=== PATIENT | male | born 1980 | race Caucasian/White ===

== ENCOUNTER → 2020-04-09 12:02 | Outpatient (CLI) | payer OTHER, SELFPAY ==
--- NOTE | ~2020-04-09 | XR_ITS ---
EXAMINATION: XR lumbar spine 2-3V DATE: 04/09/2020 12:31 INDICATION: Low back pain TECHNIQUE: Anteroposterior and lateral views of the lumbar spine, and cone-down lateral view of the l umbosacral junction were obtained. COMPARISON: None. FINDINGS: The vertebral body heights and alignment are normal. There is mild loss of intervertebral d isc space height at L2-3 and L5-S1. Small degenerative osteophytes project from the anterior endplate s of multiple vertebral bodies. There is mild facet osteoarthritis of the lower lumbar spine. The bow el gas pattern is normal. IMPRESSION: 1. Mild lumbar spondylosis. Reviewed, dictated and finalized at location A. IMPRESSION: 1. Mild lumbar spondylosis.
--- NOTE | ~2020-04-09 | XR_ITS ---
EXAMINATION: XR chest 2V DATE: 04/09/2020 12:31 INDICATION: Tobacco use TECHNIQUE: AP and lateral views of the chest are obtained. COMPARISON: 12/10/2018 FINDINGS: The lungs are free of acute opacities. There is no pleural effusion or pneumothorax. The ca rdiomediastinal silhouette is normal. There is mild thoracic spondylosis. IMPRESSION: 1. No acute cardiopulmonary abnormality. Reviewed, dictated and finalized at location A.
== END ==
PROVIDERS: PCP Emergency Medicine; Visit Provider Emergency Medicine
DX: M54.5 Low back pain (principal); M47.816 Spondylosis without myelopathy or radiculopathy, lumbar region; Z72.0 Tobacco use
CPT/HCPCS: 71046; 72100

== ENCOUNTER 2022-05-10 13:00 | Emergency (ER) | payer OTHER, SELFPAY ==
--- NOTE | ~2022-05-10 | US_ITS ---
EXAMINATION: US venous doppler LE RT DATE: 05/10/2022 15:43 INDICATION: right leg pain, swelling . TECHNIQUE: Grayscale images without and with compression and Doppler images of the right lower extrem ity veins were obtained. COMPARISON: None FINDINGS: The right common femoral vein, profunda (deep) femoral vein, femoral vein, popliteal vein, peroneal v ein, and posterior tibial veins are patent. IMPRESSION: 1. Patent right lower extremity veins. No evidence of deep venous thrombosis. Reviewed, dictated and finalized at location K. [employer]
[2022-05-10 13:43] VITALS: BP 168/75; PULSE 110; RESP 14; TEMP 37.1; O2SAT 99
[2022-05-10 14:26] LABS: Basophils Absolute Auto 0.1 K/mm3 (0.0-0.1); Basophils Percent Auto 1.2 % (0.2-1.2); Eosinophils Absolute Auto 0.2 K/mm3 (0-0.3); Eosinophils Percent Auto 2.3 % (0-4.4); Hematocrit 40.7 % (42.0-52.0); Hemoglobin 13.7 g/dL (14.0-18.0); Immature Granulocyte Absolute 0.02 K/mm3 (0.00-0.031); Immature Granulocyte Percent A 0.3 % (0-0.5); Lymphocytes Absolute Auto 1.88 K/mm3 (0.9-3.2); Lymphocytes Percent Auto 28.8 % (18.3-44.2); Mean Corpuscular HGB Conc 33.7 g/dl (32-36); Mean Corpuscular Hemoglobin 30.7 pg (26-34); Mean Corpuscular Volume 91.3 fl (80-100); Mean Platelet Volume 10.3 fl (7.4-10.4); Monocytes Absolute Auto 0.6 K/mm3 (0.1-0.6); Monocytes Percent Auto 9.5 % (2.6-8.5); Neutrophils Absolute Auto 3.8 K/mm3 (1.3-6.7); Neutrophils Percent Auto 57.9 % (45.5-73.1); Platelet Count Result 249 k/mm3 (150-375); Red Blood Count 4.46 M/mm3 (4.6-6.20); Red Cell Distribution Width 12.4 % (11.5-14.5); White Blood Count 6.5 K/mm3 (4.5-10.0)
[2022-05-10 14:37] LABS: Anion Gap 11 mmol/L (8-16); Blood Urea Nitrogen 12 mg/dL (9-20); Calcium 8.6 mg/dL (8.4-10.2); Carbon Dioxide 22 mmol/L (22-30); Chloride 106 mmol/L (98-107); Estimated CRCL calculation 147 ml/min; Estimated Glomerular Filt Rate > 60; Glucose 107 mg/dL (65-110); Potassium 4.2 mmol/L (3.4-5.0); Sodium 139 mmol/L (137-145)
--- NOTE | 2022-05-10 16:13 | ED.GENADULT ---
HPI - General Adult General Chief complaint: Extremity Problem,Nontraumatic Stated complaint: RT leg cellulitis Time Seen by Provider: 05/10/22 15:35 History of Present Illness HPI narrative: 41-year-old male with who is currently being treated for cellulitis presents to get a Doppler to make sure he does not have a DVT. Patient began taking Keflex which was prescribed by his PCP. He has taken 1 day of the medication but was advised to come to the ER to make sure that it is in fact cellulitis and not a DVT. Patient has no coagulopathies that he knows of and has never had a DVT or PE. Related Data Allergies Allergy/AdvReac Type Severity Reaction Status Date / Time CATS Allergy Mild Uncoded 08/28/09 19:56 Review of Systems Review of Systems: CONSTITUTIONAL: Denies fever, chills, or sweats. EYES: Denies visual changes, redness, or discharge. ENT: Denies rhinorrhea, congestion, sore throat, or otalgia. CARDIOVASCULAR: Denies chest pain, palpitations, or edema. RESPIRATORY: Denies cough or dyspnea. GASTROINTESTINAL: Denies abdominal pain, nausea, vomiting, or diarrhea. GENITOURINARY: Denies dysuria or hematuria. SKIN: Mild circumferential rash on distal calf just proximal to right ankle MUSCULOSKELETAL: Denies back pain, joint pain, or myalgia. NEUROLOGIC: Denies headache, numbness, or weakness. PSYCHIATRIC: Denies anxiety or depression. [facility] Family History Family History (Updated 05/02/13 @ 09:42 by DOCTOR UNKNOWN) Other Diabetes mellitus Social History Social History Smoking status: Current every day smoker Second hand tobacco smoke exposure: No Smoking end date: 06/21/11 Alcohol intake: current Course Vital Signs Vital signs: Vital Signs Temperature 98.7 F 05/10/22 13:43 Pulse Rate 110 H 05/10/22 13:43 Respiratory Rate 14 05/10/22 13:43 Blood Pressure 168/75 H 05/10/22 13:43 Pulse Oximetry 99 05/10/22 13:43 Oxygen Delivery Room Air 05/10/22 13:43 Temperature 98.7 F 05/10/22 13:43 Pulse Rate 110 H 05/10/22 13:43 Respiratory Rate 14 05/10/22 13:43 Blood Pressure 168/75 H 05/10/22 13:43 Pulse Oximetry 99 05/10/22 13:43 Oxygen Delivery Room Air 05/10/22 13:43 Medical Decision Making MDM Narrative Medical decision making narrative: Venous Doppler is negative and patient states cellulitis is improving with Keflex. We have drawn an outline around the periphery and I will send a prescription for Bactrim and have discussed watchful waiting. Patient agrees to continue with Keflex and to grape picker the Bactrim if the cellulitis is not improving Vital Signs Vital Signs: Vital Signs Temperature 98.7 F 05/10/22 13:43 Pulse Rate 110 H 05/10/22 13:43 Respiratory Rate 14 05/10/22 13:43 Blood Pressure 168/75 H 05/10/22 13:43 Pulse Oximetry 99 05/10/22 13:43 Oxygen Delivery Room Air 05/10/22 13:43 Temperature 98.7 F 05/10/22 13:43 Pulse Rate 110 H 05/10/22 13:43 Respiratory Rate 14 05/10/22 13:43 Blood Pressure 168/75 H 05/10/22 13:43 Pulse Oximetry 99 05/10/22 13:43 Oxygen Delivery Room Air 05/10/22 13:43 Lab Data Result diagrams: 05/10/22 13:51 05/10/22 13:51 Labs: Lab Results 05/10/22 05/10/22 Range/Units 13:51 13:51 WBC 6.5 (4.5-10.0) K/mm3 RBC 4.46 L (4.6-6.20) M/mm3 Hgb 13.7 L (14.0-18.0) g/dL Hct 40.7 L (42.0-52.0) % MCV 91.3 (80-100) fl MCH 30.7 (26-34) pg MCHC 33.7 (32-36) g/dl RDW 12.4 (11.5-14.5) % Plt Count 249 (150-375) k/mm3 MPV 10.3 (7.4-10.4) fl Immature Gran % (Auto) 0.3 (0-0.5) % Neut % (Auto) 57.9 (45.5-73.1) % Lymph % (Auto) 28.8 (18.3-44.2) % [place] % (Auto) 9.5 H (2.6-8.5) % Eos % (Auto) 2.3 (0-4.4) % Baso % (Auto) 1.2 (0.2-1.2) % Lymph # (Auto) 1.88 (0.9-3.2) K/mm3 [place] # (Auto) 0.6 (0.1-0.6) K/mm3 Eos # (Auto) 0.2 (0-0.3) K/mm3 Baso # (Auto) 0.1 (0.0-0.1) K/mm3 Abs Immat Gran
== END 2022-05-10 16:40 | disposition home or self-care (01) ==
PROVIDERS: Emergency Medicine; Emergency Provider Emergency Medicine; PCP Emergency Medicine
DX: L03.115 Cellulitis of right lower limb (principal); Z87.891 Personal history of nicotine dependence
CPT/HCPCS: 36415; 80048; 85025; 93971; 99284

== ENCOUNTER → 2024-01-25 09:17 | Outpatient (CLI) | payer OTHER, SELFPAY ==
--- NOTE | ~2024-01-25 | XR_ITS ---
Lumbosacral Spine: AP and lateral views Clinical History: Pain Findings: The normal lordotic curve is maintained. The vertebral bodies and posterior elements are i ntact. Moderate facet arthropathy present at the lower lumbar spine. There are mild degenerative disc changes, worst at L2-L3.. The sacroiliac joints are normally outlined. Impression: Mild degenerative spondylosis overall, as above. Reviewed, dictated and finalized at location . Impression: Mild degenerative spondylosis overall, as above.
== END ==
LOC: EXPCRAD 09:21
PROVIDERS: PCP Emergency Medicine; Visit Provider Emergency Medicine
DX: M47.896 Other spondylosis, lumbar region (principal)
CPT/HCPCS: 72100

== ENCOUNTER 2024-02-01 10:32 | Outpatient (CLI) | payer OTHER, SELFPAY ==
--- NOTE | ~2024-02-01 | CT_ITS ---
EXAMINATION: CT abdomen pelvis wo con DATE: 02/01/2024 11:17 INDICATION: Abdominal pain. TECHNIQUE: Computed tomography (CT) of the abdomen and pelvis was performed without intravenous contr ast. Automated exposure control and iterative reconstruction technique were employed. The dose-length product was 1686.50 mGy-cm. COMPARISON: None. FINDINGS: The visualized portions of the lung bases are clear without pneumonia or pleural effusion. The heart size is normal. No pericardial effusion. The liver and gallbladder are normal. Calcificatio ns in the spleen are consistent with old granulomatous disease. The pancreas, adrenal glands, and kid neys are normal. There is no urolithiasis. There are no dilated loops of bowel. The appendix is sara l. There are no pathologically enlarged lymph nodes. There is no free intraperitoneal fluid. There is moderate lumbar spinal spondylosis and mild thoracic spondylosis. IMPRESSION: 1. No etiology for the patient's symptoms. Reviewed, dictated and finalized at location A.
== END 2024-02-01 10:33 | disposition home or self-care (01) ==
LOC: ANHIMG 10:37
PROVIDERS: PCP Emergency Medicine; Visit Provider Emergency Medicine
DX: R10.9 Unspecified abdominal pain (principal)
CPT/HCPCS: 74176